=== PATIENT | male | born 1955 | race Caucasian/White ===

== ENCOUNTER 2018-08-14 16:18 | Emergency (ER) | payer OTHER ==
[~2018-08-14] VITALS: Ht 177.8 cm; Wt 87.5 kg
[2018-08-14 16:40] VITALS: Ht 177.8 cm; Wt 87.5 kg
[2018-08-14 20:56] VITALS: BP 125/69
== END 2018-08-14 20:56 | disposition home or self-care (01) ==
LOC: ED 16:18
DX: S09.8XXA Other specified injuries of head, initial encounter (principal); S00.81XA Abrasion of other part of head, initial encounter; S80.212A Abrasion, left knee, initial encounter; S70.311A Abrasion, right thigh, initial encounter; S60.511A Abrasion of right hand, initial encounter; F10.129 Alcohol abuse with intoxication, unspecified; R07.89 Other chest pain; M79.661 Pain in right lower leg; I10 Essential (primary) hypertension; V23.4XXA Motorcycle driver injured in collision with car, pick-up truck or van in traffic accident, initial encounter; Y93.I9 Activity, other involving external motion; Y92.413 State road as the place of occurrence of the external cause; Y99.8 Other external cause status

== ENCOUNTER 2020-03-03 10:41 | Inpatient (IN) | payer OTHER, SELFPAY ==
[~2020-03-03] VITALS: Ht 165.1 cm; Wt 83.5 kg
[2020-03-03 10:52] VITALS: Ht 165.1 cm; Wt 83.5 kg
--- NOTE | 2020-03-03 11:08 | NUR ---
;AB AT BEDSIDE FOR BLOOD DRAW AT THIS TIME.
--- NOTE | 2020-03-03 11:10 | NUR ---
PT BIB SELF C/O DIZZINESS X 3DAYS. PER PT "I JUST WOKE UP AND STARTED FEELING DIZZY". PT REPORTS "I HAVE BEEN HOSPITALIZED FOR THIS BEFORE. PT NOTED USING CANE. PT AAOX4, RESP E/U, PLACED ON FULL CM, SINUS TACH NOTED. MD RING AT BEDSIDE FOR EVEAL AT THIS TIME. AWAITING FURTHER ORDERS
[2020-03-03 11:31] LABS: BASOPHIL % 0.5 % (0-2); PLATELET COUNT 137 x10^3mcL (130-400); RED CELL DISTRIBUTION WIDTH 14.4 % (11.5-14.5)
--- NOTE | 2020-03-03 11:32 | NUR ---
PT TKANE OFF ER FLOOR TO CT VIA ER [facility] AT THIS TIME. NO AD NOTED.
[2020-03-03 11:38] LABS: CALCIUM 8.8 mg/dL (8.5-10.1); CARBON DIOXIDE 19.8 mmol/L (21-32); CHLORIDE SERUM 91 mmol/L (98-107); CREATININE SERUM 1.2 mg/dL (0.7-1.3); GFR1 > 60 mL/min; GLUCOSE SERUM 134 mg/dL (74-106); POTASSIUM SERUM 3.6 mmol/L (3.5-5.1); SODIUM SERUM 128 mmol/L (136-145)
--- NOTE | 2020-03-03 11:41 | NUR ---
PT RETURNED FROM CT VIA ER [facility]. NO ACUTE DISTRESS NOTED. WILL CONTINUE TO MONITOR.
--- NOTE | 2020-03-03 11:42 | NUR ---
XRAY AT BEDSIDE FOR CXR AT THIS TIME.
--- NOTE | 2020-03-03 11:43 | NUR ---
SPOKE WITH PHARMACIST DAMASO AND VERIFIED MULTIVITMIN ORDER, PER DAMASO "DO NOT BOLUS, RUN AT SLOW RATE" PER MD SELF "BOLUS THE MULTIVITAMIN". CLAIRFIED WITH MD URBINA RUN 200MLHR.
[2020-03-03 11:49] LABS: ALBUMIN 3.9 g/dL (3.4-5.0); ALKALINE PHOSPHATASE 124 U/L (46-116); ALT/SGPT 189 U/L (16-63); AST/SGOT 203 U/L (15-37); BILIRUBIN TOTAL 2.7 mg/dL (0.20-1.00); LIPASE 242 IU/L (73-393); MAGNESIUM 1.5 mg/dL (1.8-2.4); T4(THYROXINE) 8.5 ug/dL (4.7-13.3)
[2020-03-03 11:52] LABS: CHOLESTEROL 217 mg/dL (<200); HDL CHOLESTEROL 92 mg/dL (40-60); TOTAL PROTEIN, SERUM 8.9 g/dL (6.4-8.2)
--- NOTE | 2020-03-03 11:52 | NUR ---
MEDICATED PT PER MD ORDERS, PLEASE SEE EMAR.
--- NOTE | 2020-03-03 13:10 | NUR ---
PT NOTED SITTING UPRIGHT IN ER [facility]. NO ACUTE DISTRESS NOTED, VSS AT THIS TIME. WILL CONTINUE TO MONITOR.
--- NOTE | 2020-03-03 13:14 | NUR ---
RESIDENT EASON AT BEDSIDE FOR EVAL AT THIS TIME. PT REPORTS "I HAVE BEEN HAVING A HEADACHE SINCE YESTERDAY" PTS EYES NOTED "TWITCING" SIDE TO SIDE MOVEMENT. AWAITING FURTHER ORDERS. WILL CONTINUE TO MONITOR.
--- NOTE | 2020-03-03 13:23 | NUR ---
PROVIDED URINAL TO PT AT THIS TIME FOR URINE SAMPLE. WILL CONTINUE TO MONITOR.
--- NOTE | 2020-03-03 14:35 | NUR ---
RECEIVED PATIENT FROM ER [facility]IA [facility], A/O X4, WALKING WITH CANE UNSTEADY NOTED, RN NEED ASSIST. PT SITUATED IN BED C/O BACK PAIN 05/13, NO ACUTE DISTRESS NOTED. PLACE TELE #21 NSR, HR 95 NOTED. ORIENTED TO CALL LIGHT AND WITHIN REACH. KIRSTIE RN RESUME CARE.
[2020-03-03 14:51] VITALS: BP 144/77
--- NOTE | 2020-03-03 15:02 | NUR ---
PT REQUESTING SOMETHING TO EAT AND DRINK, PAGED DR. EASON, AWAITING CALL BACK.
--- NOTE | 2020-03-03 15:05 | NUR ---
SPOKE WITH DR. EASON, PER DR. EASON WILL SEE IF PT NEEDS ADDITIONAL TEST PRIOR TO ORDERING DIET.
--- NOTE | 2020-03-03 15:28 | NUR ---
PT ASKING TO USE BATHROOM. PT VERY UNSTEADY, ASSISTED TO BATHROOM PT VOIDED. ASSISTED PT BACK TO BED, INSTRUCTED PT TO USE URINAL, URINAL WITHIN REACH. PT INSTRUCTED TO CALL WHEN IN NEED OF ASSISTANCE TO BATHROOM. BED ALARM. WILL CONTINUE TO MONITOR. CALL LIGHT IN REACH. BED IN LOWEST POSITION.
--- NOTE | 2020-03-03 19:30 | NUR ---
RECEIVED PT REPORT. PATIENT IS AAOX4, DENIES ROBERTSON/DIZZINESS AT THIS TIME. YOCHA DEHE. BREATHING EVEN AND UNLABORED ON RA WITH NO SOB NOTED. TELE #21 SR ON MONITOR, DENIES CHEST PAIN/PRESSURE. ABD SOFT/DIST, ACTIVE BOWEL SOUNDS. DENIES ABD PAIN/N/V. IV RH PATENT, SL. IV LAC PATENT, INFUSING WELL WITH NO SIGNS OF INFILTRATION. PATIENT IS UNSTEADY, USES BSC. PATIENT IN NO ACUTE DISTRESS. CALL BUTTON WITHIN REACH. SAFETY PRECAUTIONS IN PLACE. WILL MONITOR.
[2020-03-03 21:21] VITALS: BP 122/70
[2020-03-03 21:23] VITALS: BP 164/92
[2020-03-03 21:32] VITALS: BP 124/72
--- NOTE | 2020-03-04 00:42 | NUR ---
PATIENT RESTING, EASILY AROUSABLE. NO ACUTE DISTRESS NOTED. PATIENT IV PATENT, INFUSING WELL. SAFETY PRECAUTIONS IN PLACE. CALL BUTTON WITHIN REACH. WILL MONITOR.
--- NOTE | 2020-03-04 03:16 | NUR ---
PATIENT IS HAVING LOOSE STOOL TONIGHT X3, PATIENT REPORTED HAVING UPSET STOMACH. DR STARKS MADE AWARE.
[2020-03-04 05:07] VITALS: BP 122/54
--- NOTE | 2020-03-04 06:25 | NUR ---
PATIENT SLEPT ON AND OFF THROGUHOUT THE NIGHT. NO ACUTE DISTRESS NOTED. PATIENT CONTINUE TO HAVE LOOSE STOOLS THROUGHOUT THE NIGHT. PATIENT IV PATENT INFUSING WELL. ALL NEEDS MET. DENIES PAIN. SAFETY PRECAUTIONS IN PLACE. WILL MONITOR.
[2020-03-04 07:10] LABS: ALKALINE PHOSPHATASE 100 U/L (46-116); ALT/SGPT 127 U/L (16-63); AST/SGOT 142 U/L (15-37); BILIRUBIN TOTAL 2.5 mg/dL (0.20-1.00); CALCIUM 7.7 mg/dL (8.5-10.1); CHLORIDE SERUM 100 mmol/L (98-107); CREATININE SERUM 0.8 mg/dL (0.7-1.3); GFR1 > 60 mL/min; GLUCOSE SERUM 89 mg/dL (74-106); POTASSIUM SERUM 3.2 mmol/L (3.5-5.1); SODIUM SERUM 134 mmol/L (136-145); TOTAL PROTEIN, SERUM 6.5 g/dL (6.4-8.2)
[2020-03-04 07:12] LABS: ALBUMIN 2.8 g/dL (3.4-5.0)
--- NOTE | 2020-03-04 07:35 | NUR ---
ENDORSED CARE TO JACKELYN DSOUZA, ALL QUESTIONS ADDRESSED.
--- NOTE | 2020-03-04 08:06 | NUR ---
RECEIVED PATIENT FROM LIANNA OJEDA. PATIENT OBSERVED AMBULATING WITH SHUFFLING GAIT TO BR. X1 URINATION. SPOKE WITH PATIENT ABOUT PLAN OF CARE TODAY. PATIENT STATES HE HAS A HEADACHE AND "SEEING DOUBLE". WILL DISCUSS WITH DR EASON WHEN THEY MAKE ROUNDS PATIENT ONLY HAS JUVE JUAREZ AT THIS TIME. CALL LIGHT IN REACH.
[2020-03-04 08:53] VITALS: BP 138/79
[2020-03-04 12:55] VITALS: BP 128/73
[2020-03-04 15:37] LABS: BASOPHIL % 0.7 % (0-2); RED CELL DISTRIBUTION WIDTH 14.5 % (11.5-14.5)
[2020-03-04 15:49] LABS: PLATELET COUNT 112 x10^3mcL (130-400)
[2020-03-04 16:10] VITALS: BP 108/70
--- NOTE | 2020-03-04 19:30 | NUR ---
RECEIVED PT REPORT. PATIENT IS AAOX4, DENIES ROBERTSON/DIZZINESS AT THIS TIME. OUZINKIE. BREATHING EVEN AND UNLABORED ON RA WITH NO SOB NOTED. TELE #21 SR ON MONITOR, DENIES CHEST PAIN/PRESSURE. ABD SOFT/DIST, ACTIVE BOWEL SOUNDS. DENIES ABD PAIN/N/V. PATIENT STATED HE CONTINUE TO HAVE LOOSE STOOL AFTER DINNER. DE DENIES HAVING LOOSE STOOL ALL DAY. IV RFA PATENT, INFUSING WELL WITH NO SIGNS OF INFILTRATION. PATIENT USES BSC. PATIENT IN NO ACUTE DISTRESS. CALL BUTTON WITHIN REACH. SAFETY PRECAUTIONS IN PLACE. WILL MONITOR.
--- NOTE | 2020-03-04 20:08 | NUR ---
DR STARKS MADE AWARE PATIENT K 3.2 THIS AM AND NO COVERAGE, NO NEW ORDERS AT THIS TIME.
[2020-03-04 21:00] VITALS: BP 115/62
--- NOTE | 2020-03-05 03:25 | NUR ---
PATIENT RESTING, EASILY AROUSABLE. UNLABORED BREATHING. NO ACUTE DISTRESS NOTED. PATIENT DENIES LOOSE STOOLS. SAFETY PRECAUTIONS IN PLACE. WILL MONITOR.
--- NOTE | 2020-03-05 05:34 | NUR ---
PATIENT SLEPT ON AND OFF THROGUHOUT THE NIGHT. NO ACUTE DISTRESS NOTED. PATIENT CONTINUE TO HAVE LOOSE STOOL X2. PATIENT IV PATENT INFUSING WELL. ALL NEEDS MET. DENIES PAIN. SAFETY PRECAUTIONS IN PLACE. WILL MONITOR.
[2020-03-05 05:50] VITALS: BP 124/81
[2020-03-05 07:21] LABS: BASOPHIL % 1.2 % (0-2); RED CELL DISTRIBUTION WIDTH 14.4 % (11.5-14.5)
--- NOTE | 2020-03-05 07:23 | NUR ---
PATIENT IN NO ACUTE DISTRESS, ENDORSED CARE TO KAREN DSOUZA. ALL QUESTIONS ADDRESSED.
[2020-03-05 07:33] LABS: PLATELET COUNT 101 x10^3mcL (130-400)
--- NOTE | 2020-03-05 08:00 | NUR ---
RECEIVED PATIENT WHO APPEARS MILDLY JAUNDICATED AND IS WITH SOME TREMORS. HE DENIES FEELIGN DIZZY AND HIAS BEEN NOTE DTO HAVE HISTORY OF ETOH ABUSE. PATIENT HAS BEEN ADMITTED FOR ATAXIA AND HYPONATREMIA AND NOTE DNOSE IS WITH SOME BLOODY OUTPUT BUT NO PREFUSE AND CONTINUOUS. PATIENT HAS BEEN ABLE TO TOLERATED OOB WTIO THE BEDSIDE COMODE AND HAS BEEN ON NS AT 100 CC PER HOUR. PATIENT HAS MODERATE ATROPHY AND CHONIC SMALL VESSIL ISCHEMIA CHANGES. PATIENT HAS ALSO HYPERTENSION. PATIENT HAS AN ECHO ORDERED FOR TODAY. NO INDICATION OF ACUTE DISTRESS AND DENIES PAIN AT THIS TIME.
[2020-03-05 08:10] LABS: ALKALINE PHOSPHATASE 125 U/L (46-116); ALT/SGPT 130 U/L (16-63); AST/SGOT 138 U/L (15-37); CALCIUM 8.3 mg/dL (8.5-10.1); CARBON DIOXIDE 21.3 mmol/L (21-32); CHLORIDE SERUM 101 mmol/L (98-107); CREATININE SERUM 0.8 mg/dL (0.7-1.3); GFR1 > 60 mL/min; GLUCOSE SERUM 99 mg/dL (74-106); MAGNESIUM 1.7 mg/dL (1.8-2.4); PHOSPHOROUS 3.3 mg/dL (2.5-4.9); POTASSIUM SERUM 3.2 mmol/L (3.5-5.1); SODIUM SERUM 134 mmol/L (136-145); TOTAL PROTEIN, SERUM 6.8 g/dL (6.4-8.2)
[2020-03-05 09:15] VITALS: BP 97/55
[2020-03-05 13:01] VITALS: BP 97/55
--- NOTE | 2020-03-05 15:18 | NUR ---
PATIENT HAD ECHO AND DR MADE AWARE THAT IT IS ABNORMAL. BRENDAN CALL FOR FINALIZATION BUT DUE TO THE RECENT RESULTS WILL NEED THE RESIDENT TO LOOK AND DETERMINE PLAN OF CARE. 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 SHE JUST SHOWS UP AND WAS NOT HERE TO MAINTENANCE SHOP TECHNICIAN THE PATIENT WAS TOLD PRIOR THAT SHE CAN NOT GET INFORMATION FROM STAFF WITHOUT PERMISSION FROM THE PATIENT. SON HAD CALLED AND INFORMATION GIVEN TO THE SON. PATIENT WAS TO GO HOME TODAY. RESIDENT IS AWARE AND IS GOING TO SPEAK WITH THE PATIENT NOW THE PATIENT WILL NEED A CARDIOLOGY CONSULTATION.
--- NOTE | 2020-03-05 18:19 | NUR ---
DISCHARGED TO HOME AND ENCOURAGED TO FOLLOW UP WITH PRIMARY AND PEST CONTROLLER. GAVE COPY OF THE ECHO IMDICATED. SPOKE WITH AJITH HIS SON AND ADVISED OF PLAN OF CARE. ALSO THE RESIDENT SPOKE AT LENGTH TO BOTH THE PATIENT AND THE SON ABOUT THE HEART AND HIS GENERAL CONDITION AND HIS ALCOHOL USE AND HOW IT IS AFFECTING HIS LIVER. PATIENT ASSURES STAFF HE IS TAKING THIS SERIOUSLY AND WILL FOLLOW UP WITH A DOCTOR POST DISCHARGE.
== END 2020-03-05 18:30 | disposition home or self-care (01) | DRG 424 ==
LOC: ED 10:41 → DU 12:46
PROVIDERS: Emergency Medicine; ADMIT Internal Medicine; ATTEND Internal Medicine
DX: R73.9 Hyperglycemia, unspecified (principal); E83.42 Hypomagnesemia; E87.1 Hypo-osmolality and hyponatremia; I10 Essential (primary) hypertension; R27.0 Ataxia, unspecified; F10.20 Alcohol dependence, uncomplicated; Y90.9 Presence of alcohol in blood, level not specified; I35.0 Nonrheumatic aortic (valve) stenosis
CPT/HCPCS: 82962; 83880; 97116-GP; 97530-GP; G0378; G0480; J3411; J3475; J3490; J7030; Q0092

== ENCOUNTER 2020-08-07 12:22 | Emergency (ER) | payer OTHER ==
[~2020-08-07] VITALS: Ht 167.6 cm; Wt 93.4 kg
[2020-08-07 12:38] VITALS: Ht 167.6 cm; Wt 93.4 kg
[2020-08-07 15:34] LABS: microscopic required? NO
[2020-08-07 15:43] LABS: urine erythrocyte NEGATIVE (NEGATIVE)
[2020-08-07 15:59] LABS: PLATELET COUNT 228 x10^3mcL (130-400)
[2020-08-07 16:02] LABS: AMPHETAMINE QUAL UR NONE DETECTED (See below)
[2020-08-07 16:04] LABS: RED CELL DISTRIBUTION WIDTH 17.3 % (11.5-14.5)
[2020-08-07 16:11] LABS: CALCIUM 8.2 mg/dL (8.5-10.1); CARBON DIOXIDE 24.1 mmol/L (21-32); CHLORIDE SERUM 102 mmol/L (98-107); CREATININE SERUM 0.8 mg/dL (0.7-1.3); GFR1 > 60 mL/min; GLUCOSE SERUM 102 mg/dL (74-106); POTASSIUM SERUM 3.2 mmol/L (3.5-5.1); SODIUM SERUM 136 mmol/L (136-145)
[2020-08-07 16:18] LABS: ALKALINE PHOSPHATASE 253 U/L (46-116); ALT/SGPT 78 U/L (16-63); AST/SGOT 138 U/L (15-37); BILIRUBIN TOTAL 2.59 mg/dL (0.20-1.00); CHOLESTEROL 142 mg/dL (<200); HDL CHOLESTEROL 36 mg/dL (40-60); LIPASE 304 IU/L (73-393); T4(THYROXINE) 8.5 ug/dL (4.7-13.3); TOTAL PROTEIN, SERUM 7.1 g/dL (6.4-8.2)
[2020-08-07 16:23] LABS: ALBUMIN 2.4 g/dL (3.4-5.0); BAND NEUTROPHIL 4 % (0-10); METAMYELOCTE 2 % (0-2); MONOCYTE 5 % (0-7); SEGMENTED NEUTROPHILS 86 % (37-75)
[2020-08-07 16:25] LABS: PLATELET MORPHOLOGY PLATELETS NORMAL; rbc morphology (normal/abnorm) ABNORMAL (NORMAL)
[2020-08-07 17:40] VITALS: BP 114/74
== END 2020-08-07 17:40 | disposition home or self-care (01) ==
LOC: ED 12:22
PROVIDERS: Emergency Medicine
DX: R60.0 Localized edema (principal); E88.09 Other disorders of plasma-protein metabolism, not elsewhere classified; K70.9 Alcoholic liver disease, unspecified; R74.01 Elevation of levels of liver transaminase levels; E72.29 Other disorders of urea cycle metabolism; D64.9 Anemia, unspecified; I10 Essential (primary) hypertension
CPT/HCPCS: 83880; G0480; J1940